=== PATIENT | male | born 1955 | race Caucasian/White ===

== ENCOUNTER 2023-11-04 02:03 | Emergency (ER) | payer MEDICARE ==
[2023-11-04] VITALS (17 sets, daily range): BP systolic 130–227; BP diastolic 70–126
[2023-11-04 02:39] LABS: BASO% 0.4 % (0-3); EOS% 3.1 % (0-8); HEMATOCRIT 40.1 % (39.0-50.0); HEMOGLOBIN 13.9 g/dl (14.0-18.0); IMMATURE GRANULOCYTES 0.2 % (0.0-5.0); LYMPH% 47.2 % (15-41); MEAN CELL VOLUME 95.5 fL CALC (80.0-100.0); MEAN CORPUSCULAR HGB 33.1 pG CALC (26.0-32.0); MEAN CORPUSCULAR HGB CONC 34.7 g/dL CAL (32.0-36.0); NEUT# 2.17 thou/uL (1.82-7.42); NEUT% 40.1 % (42-76); RED BLOOD COUNT 4.2 mill/uL (4.70-6.10)
[2023-11-04] MEDS ORDERED: CARVEDILOL12.5 MG PO (02:46)
[2023-11-04] MEDS ORDERED: LYRICA50 MG PO (02:47)
[2023-11-04 02:49] LABS: ALBUMIN 4.4 g/dL (3.2-5.0); ALKALINE PHOSPHATASE 74 u/l (38-126); ANION GAP 12 (6-22 (CALC)); BILIRUBIN, TOTAL 0.9 mg/dL (0.2-1.3); BUN 16 mg/dL (8-23); BUN/CREATININE RATIO 14 (12-20 (CALC)); CARBON DIOXIDE 22 mmol/l (22-30); CHLORIDE 110 mmol/l (95-108); CREATININE 1.1 mg/dL (0.7-1.3); GFR FOR AFR.AMER. > 60 ML/MIN (>=60 (CALC)); GFR OTHER RACES > 60 ML/MIN (>=60 (CALC)); POTASSIUM 4.1 mmol/l (3.5-5.1); SGOT/AST 34 u/l (19-48); SODIUM 139 mmol/l (137-146); TOTAL PROTEIN 7.1 g/dL (6.3-8.2)
[2023-11-04 03:01] LABS: ACT PARTIAL THROMBO TIME 25.6 SECONDS (20.0-32.5); INTERNATIONAL NORMALIZED RATIO 1.1 RATIO (0.7-1.3); PROTHROMBIN TIME 10.6 SECONDS (9.0-12.5)
[2023-11-04 03:12] LABS: D-DIMER 0.34 mg/L (0.19-0.60)
[2023-11-04] MEDS ORDERED: HYZAAR1 TA2 PO (06:19)
== END 2023-11-04 06:44 | disposition home or self-care (01) ==
LOC: ED 02:03
PROVIDERS: Family Medicine
DX: R07.9 Chest pain, unspecified (principal); I10 Essential (primary) hypertension; K08.89 Other specified disorders of teeth and supporting structures; Z20.822 Contact with and (suspected) exposure to COVID-19